=== PATIENT | female | born 1970 | race Caucasian/White ===

== ENCOUNTER 2018-04-03 23:40 | Emergency (ER) | payer BC ==
[2018-04-04] MEDS ORDERED: Acetaminophen 325 MG TAB ONE (00:35)
[2018-04-04] MEDS ORDERED: predniSONE 20 MG TAB ONE (00:35)
== END 2018-04-04 00:55 | disposition home or self-care (01) ==
LOC: ERS 23:40
DX: J06.9 Acute upper respiratory infection, unspecified (principal); R06.2 Wheezing; M06.9 Rheumatoid arthritis, unspecified; Z79.899 Other long term (current) drug therapy
CPT/HCPCS: J7506; J7620

== ENCOUNTER 2019-08-25 20:49 | Observation (INO) | payer BC ==
[2019-08-25 21:30] LABS: #Basophils 0.1 thou/uL (0.0-0.2); #Eosinphils 0.1 thou/uL (0.0-0.7); #Lymphocytes 3.5 thou/uL (1.20-3.40); #Monocytes 0.8 thou/uL (0.11-0.59); #Neutrophils 6.5 thou/uL (1.40-6.50); %Basophils 0.5 % (0.0-1.0); %Eosinophils 1.3 % (0.0-10.0); %Lymphocytes 31.7 % (21.0-51.0); %Monocytes 7.2 % (0.0-10.0); %Neutrophils 59.3 % (42.0-75.0); Hemoglobin 14.1 g/dL (12.0-16.0); Mean Corpuscular HGB CONC 34.4 g/dL (32.0-36.0); Mean Corpuscular Hemoglobin 31.6 pg (27.0-31.0); Mean Corpuscular Volume 91.7 fL (78.0-98.0); Mean Platelet Volume 7.8 fL (7.4-10.4); Platelet Count 285 thou/uL (130-400); RBC Distribution Width 12.2 % (11.5-14.5); Red Blood Cell (RBC) Count 4.45 mill/uL (4.20-5.40); White Blood Cell (WBC) Count 10.9 thou/uL (4.8-10.8)
--- NOTE | 2019-08-25 21:41 | RAD ---
Exam: Chest one view HISTORY:Pain Comparison: January 08, 2011 FINDINGS: Lungs: No masses or consolidation. Cardiac silhouette:Accentuated by portable technique Pulmonary vessels: Normal Pleural Spaces: Clear Pneumothorax: None Osseous abnormalities: None of acuity. IMPRESSION: No focal consolidation.
[2019-08-25 21:43] LABS: ALT (SGPT) 17 U/L (8-55); AST (SGOT) 18 U/L (5-34); Albumin 4.2 g/dL (3.5-5.0); Alkaline Phosphatase 77 U/L (40-110); Anion Gap 12 mmol/L (10-20); BUN (Urea Nitrogen) 14 mg/dL (7.0-18.7); Bilirubin, Total 0.9 mg/dL (0.2-1.2); Calc. Creatinine Clearance 0 mL/min (70-130); Calcium 9.3 mg/dL (7.8-10.44); Carbon Dioxide 22 mmol/L (22-29); Chloride 106 mmol/L (98-107); Estimated GFR-MDRD 83; Globulin 3.1 g/dL (2.4-3.5); Glucose 95 mg/dL (70-105); Potassium 3.6 mmol/L (3.5-5.1); Protein, Total 7.3 g/dL (6.0-8.3); Sodium 136 mmol/L (136-145)
[2019-08-25] MEDS ORDERED: Nitroglycerin 0.4 MG TAB 1 EACH ONE (21:44)
[2019-08-25] MEDS ORDERED: Aspirin 325 MG TAB ONE (21:44)
[2019-08-25] MEDS ORDERED: Nitroglycerin 2% Ointment 1 INCH/1 GM Packet ONE (22:31)
[2019-08-26 00:59] LABS: Troponin I Less than 0.010 ng/mL (< 0.028)
[2019-08-26] MEDS ORDERED: Ondansetron ODT 4 MG TAB SL PRN (01:45)
[2019-08-26] MEDS ORDERED: Sodium Chloride 0.9% 1,000 ML IV SCH (01:45)
[2019-08-26] MEDS ORDERED: Ondansetron PF 4 MG/2 ML Vial IVP PRN ×2 (01:45→11:40)
[2019-08-26] MEDS ORDERED: Acetaminophen 325 MG TAB PO PRN (01:45)
[2019-08-26 02:10] VITALS: BMI 42.0
[2019-08-26 03:41] LABS: Troponin I Less than 0.010 ng/mL (< 0.028)
[2019-08-26] MEDS ORDERED: Ondansetron ODT 4 MG TAB PO PRN (11:40)
[2019-08-26] MEDS ORDERED: Acetaminophen 500 MG TAB PO PRN (11:40)
[2019-08-26] MEDS ORDERED: hydrALAZINE 20 MG/ML VIAL SLOW IVP PRN (11:40)
[2019-08-26] MEDS ORDERED: PROVENTIL INHALER 6.7 G (200 INHALATIONS) INH PRN (15:31)
[2019-08-26] MEDS ORDERED: Hydroxychloroquine Sulfate 200 MG TAB PO SCH ×2 (15:45→19:30)
--- NOTE | 2019-08-26 17:15 | HP ---
PRIMARY CARE PROVIDER: Dr. Salvador Holland. COMPLAINT: Chest pain. HISTORY OF PRESENT ILLNESS: This is a 49-year-old female who presents to [facility] Emergency Department, complaining of substernal chest pressure beginning approximately 7:30 p.m. on 08/25/2019. The patient states she was driving her vehicle when she began to feel substernal chest pressure and tightness, rating at 4/10 in severity. The pain did not increase with exertion, and the patient did not have any relief with rest. The patient admits to some right jawline and neck discomfort, resolving prior to evaluation in the emergency room. The patient denied associated nausea, vomiting, diaphoresis, or left arm discomfort. The patient states she had similar episode approximately 5 days previous to the evaluation in the emergency room with associated fatigue. The patient admits to some shortness of breath and wheezing over the past few days, but does admit to history of allergies and asthma. The patient denied any travel history exposure, recent trauma, or injury. The patient apparently underwent cardiac catheterization in the last 10 to 15 years without intervention. In the emergency room, the patient underwent general evaluation including cardiac biomarker evaluation showing negative findings. Screening metabolic survey was unremarkable. Chest imaging was performed showing no acute process. The patient did receive transdermal nitroglycerin in addition to intravenous normal saline x1 L and aspirin 324 mg. PAST MEDICAL HISTORY: 1. Ulcerative colitis. 2. Rheumatoid arthritis after apparent exposure to ciprofloxacin. 3. Environmental allergies. 4. Urge incontinence. 5. Asthma. PAST SURGICAL HISTORY: 1. Status post cholecystectomy. 2. Status post hysterectomy. 3. Status post bilateral tubal ligation. CURRENT MEDICATIONS: 1. Humira 40 mg subcutaneously q.14 days, last dose 08/23/2019. 2. ProAir HFA 2 puffs inhaled q.4 hours p.r.n. 3. Folic acid 1 mg p.o. daily. 4. Plaquenil 200 mg two tablets on day #1 followed by one tablet on alternating days. 5. Mesalamine 1.2 g p.o. t.i.d. 6. Methotrexate 25 mg every weekly, last dose 08/22/2019. 7. Myrbetriq 25 mg p.o. daily. 8. Prednisone 5 mg p.o. q.a.m. ALLERGIES: TO CIPROFLOXACIN AND WATERMELON. FAMILY HISTORY: No inheritable disease per patient report. SOCIAL HISTORY: No current tobacco or illicit drug use. Occasional social alcohol use. REVIEW OF SYSTEMS: CONSTITUTIONAL: Negative for weight loss or gain, ability to conduct usual activities. SKIN: Negative for rash, itching. EYES: Negative for double vision, pain. ENT/MOUTH: Negative for nose bleeding, neck stiffness, pain, tenderness. CARDIOVASCULAR: Negative for palpitations, dyspnea on exertion, orthopnea. RESPIRATORY: Negative for shortness of breath, wheezing, cough, hemoptysis, fever or night sweats. GASTROINTESTINAL: Negative for poor appetite, abdominal pain, heartburn, nausea, vomiting, constipation, or diarrhea. GENITOURINARY: Negative for urgency, frequency, dysuria, nocturia. MUSCULOSKELETAL: Negative for pain, swelling. NEUROLOGIC/PSYCHIATRIC: Negative for anxiety, depression. ALLERGY/IMMUNOLOGIC: Negative for skin rash, bleeding tendency. Otherwise negative except as stated per HPI. PHYSICAL EXAMINATION: VITAL SIGNS: On admission, blood pressure 109/64, pulse 73, respiratory rate 16, temperature 97.7 degrees Fahrenheit, O2 saturation 96% on room air. GENERAL APPEARANCE: This is a 49-year-old female, alert and oriented x3, pleasant, conversant, in no acute distress. HEENT: Pupils are equal, round, reactive to light and accommodation. Extraocular muscles are intact. No scleral icterus. No conjunctival injection. Nares are patent. OP is clear. Teeth in good repair. NECK: Supple. No cervical adenopathy. No thyromegaly. No carotid bruits. No JVD appreciated. Cervical spine with full active and passive range of motion. No meningeal signs noted. CHEST: Occasional expiratory wheeze noted. Normal excursion bilaterally. CARDIOVASCULAR: S1 and S2 without noted murmur, rub, or gallop. ABDOMEN: Rounded, soft, nontender, and nondistended. Bowel sounds are positive in all 4 quadrants. No hepatosplenomegaly. No abdominal bruits. No rebound or guarding appreciated. EXTREMITIES: Warm and dry with fair turgor. No clubbing, cyanosis, or asymmetric edema appreciated. Pulses are palpable distally at the dorsalis pedis, posterior tibial, and popliteal arteries bilaterally. Capillary refill less than 2 seconds. NEUROLOGIC: Cranial nerves 2 through 12 are grossly intact. No focal or lateralizing signs appreciated. PERTINENT LABORATORY AND X-RAY FINDINGS: Complete metabolic profile within normal limits. Troponin I negative x3. CBC showed a white blood cell count of 10.9, hemoglobin 14, hematocrit 41, platelet count 285 with normal differential. Portable chest x-ray dated 08/25/2019, showed no acute cardiopulmonary process. EKG dated 08/25/2019, by my interpretation shows sinus mechanism without acute ST-T wave changes. ASSESSMENT AND PLAN: 1. Chest pain. The patient will be observed on the telemetry unit. We will proceed with exercise Cardiolite stress testing to rule out underlying ischemia. Initial metabolic and radiographic workup unrevealing. Check fasting lipid profile in the a.m. 2. Rheumatoid arthritis. Resume home immunosuppressant regimen and monitor clinically. 3. Asthma. No current evidence of an acute exacerbation. Resume albuterol sulfate 2 puffs inhaled q.4 hours p.r.n. 4. Chronic immunosuppression. No current evidence to suggest occult infectious process. Continue supportive management and resume immunosuppression therapy as stated previously. 5. Prophylaxis. Sequential compression devices while in bed. Pepcid 20 mg p.o. b.i.d. 6. Code status, full. 7. Surrogate medical decision maker not identified. Job ID: [id number]
[2019-08-26] MEDS: Famotidine 20 MG TAB PO SCH (20:12)
[2019-08-26] MEDS: Mesalamine DR 400 mg Capsule PO SCH (20:12)
[2019-08-27 05:27] LABS: Cardiac Risk 3.3 (Less than 4.5)
[2019-08-27] MEDS ORDERED: predniSONE 5 MG TAB PO SCH (08:00)
[2019-08-27] MEDS ORDERED: Hydroxychloroquine Sulfate 200 MG TAB PO SCH (09:00)
[2019-08-27] MEDS ORDERED: Folic Acid 1 MG TAB PO SCH (09:00)
[2019-08-27] MEDS: Famotidine 20 MG TAB PO SCH (12:17)
[2019-08-27] MEDS: Mesalamine DR 400 mg Capsule PO SCH (12:18)
[2019-08-27 12:21] VITALS: BP 107/67; TEMP 97.6
--- NOTE | 2019-08-27 12:32 | NM ---
EXAM: CARDIAC SPECT HISTORY: Chest pain TECHNIQUE: A myocardial perfusion scan was performed using the single isotope 2 day protocol with shivani hnetium 99m sestamibi. [31 mCi] was injected intravenously for the rest exam followed by 30 mCi for the stress study. Exercise stress was monitored and interpreted by Dr. Martinez FINDINGS: No reversible defects are seen. There are small fixed defects in the distal and paraseptal and inferolateral newman. These areas demonstrate normal wall thickening and contractility. Gated SPECT LVEF: 73% Wall motion exam: Normal IMPRESSION: No evidence of reversible ischemia.
[2019-08-28] MEDS ORDERED: Hydroxychloroquine Sulfate 200 MG TAB PO SCH (09:00)
--- NOTE | 2019-08-28 09:33 | DIS ---
DATE OF ADMISSION: 08/25/2019 DATE OF DISCHARGE: 08/27/2019 DISCHARGE DIAGNOSES: 1. Chest pain, likely musculoskeletal, noncardiac. 2. Rheumatoid arthritis on chronic immunosuppression. 3. Asthma without exacerbation. 4. Chronic immunosuppression. CONSULTATIONS: None. PERTINENT LABORATORY AND X-RAY FINDINGS: Complete metabolic profile within normal limits. Troponin I negative x3. Total cholesterol 147, triglycerides 102, HDL 45, LDL 82. CBC showed a white blood cell count of 10.9, hemoglobin 14, hematocrit 41, platelet count 285. Portable chest x-ray dated, 08/25/2019, showed no acute cardiopulmonary process. Cardiolite stress test dated, 08/26/2019, showed no evidence for reversible or fixed ischemia with calculated ejection fraction of 73%. HOSPITAL COURSE: The patient was observed on the telemetry unit after initially presenting with chest pain and concern for cardiac etiology. Serial cardiac biomarkers were negative x3, at which point the patient proceeded with exercise Cardiolite stress testing showing no evidence of reversible or fixed ischemia with calculated ejection fraction of 73%. Telemetry monitoring showed sinus mechanism without evidence of acute arrhythmia or dysrhythmia. The patient's vital signs remained stable throughout the hospital course and metabolic workup was essentially unrevealing. The patient's symptomatology likely due to musculoskeletal chest pain and noncardiac. I have examined the patient at the time of discharge and discussed followup instructions. The patient overall clinically stable and ready for discharge on 08/27/2019. DISCHARGE MEDICATIONS: 1. Humira 40 mg q.14 days. 2. ProAir HFA 2 puffs inhaled q.4 hours p.r.n. 3. Folic acid 1 mg p.o. daily. 4. Plaquenil 400 mg, followed by 200 mg alternating every other day. 5. Mesalamine 1.2 g p.o. t.i.d. 6. Methotrexate 25 mg weekly. 7. Myrbetriq 25 mg p.o. daily. 8. Prednisone 5 mg p.o. daily. FOLLOWUP: The patient may follow up with her primary care provider, Dr. Salvador Holland within 7 days of discharge. CONDITION ON DISCHARGE: Stable. ACTIVITY: Ad-hemant. DIET: Heart healthy. CODE STATUS: Full. DISPOSITION: Home, 08/27/2019. Job ID: [id number]
--- NOTE | 2019-08-28 23:45 | STRESS ---
Acquisition Time: 2019-08-27 10:20:38 Total Exercise Time: 00:10:15 Test Indications: CHEST PAIN Medications: Protocol: NICOLE Max HR: 155 BPM 91% of Pred: 170 BPM Max BP: 150/050 mmHG Max Work Load: 13.4 METS RESTING ECG: NORMAL SINUS RHYTHM AT 61 BPM WITH INTRAVENTRICULAR CONDUCTION DELAY SYMPTOMS: DYSPNEA ON EXERTION NORMAL BP RESPONSE ECTOPY: RARE PAC ECG STRESS: NO SIGNIFICANT CHANGES INTERPRETATION: NEGATIVE GXT/AWAIT NUCLEAR IMAGES FOR DEFINITIVE DIAGNOSIS Confirmed by HUSSEIN ROJAS M.D. ([id number] on 08/28/2019 11:44:22 PM Referred By: MD Blanquita ECHEVERRIA Confirmed By:HUSSEIN ROJAS M.D.
== END 2019-08-27 15:15 | disposition home or self-care (01) ==
LOC: ERS 20:49 → ERHOLD 23:23 → 2SW 08-26 01:36
PROVIDERS: ADMIT Internal Medicine; ATTEND Internal Medicine
DX: R07.2 Precordial pain (principal); M06.9 Rheumatoid arthritis, unspecified; J45.909 Unspecified asthma, uncomplicated; K51.90 Ulcerative colitis, unspecified, without complications; N39.41 Urge incontinence; Z79.899 Other long term (current) drug therapy; Z88.1 Allergy status to other antibiotic agents; Z91.018 Allergy to other foods
CPT/HCPCS: 36415; 71045; 78452; 80053; 80061; 83690; 84484; 85025; 93005; 93017; 94760; 96360; 96361; A9500; G0378; J7512

== ENCOUNTER 2021-03-06 21:40 | Observation (INO) | payer BC ==
[2021-03-06 22:23] LABS: #Eosinphils 0.2 thou/uL (0.0-0.7); #Lymphocytes 3.6 thou/uL (1.20-3.40); #Monocytes 0.7 thou/uL (0.11-0.59); #Neutrophils 3.9 thou/uL (1.40-6.50); %Basophils 0.6 % (0.0-1.0); %Eosinophils 2.4 % (0.0-10.0); %Monocytes 7.8 % (0.0-10.0); %Neutrophils 46.2 % (42.0-75.0); Hemoglobin 12.9 g/dL (12.0-16.0); Mean Corpuscular HGB CONC 34.2 g/dL (32.0-36.0); Mean Corpuscular Hemoglobin 30.9 pg (27.0-31.0); Mean Corpuscular Volume 90.6 fL (78.0-98.0); Mean Platelet Volume 7.2 fL (7.4-10.4); Platelet Count 267 thou/uL (130-400); RBC Distribution Width 11.7 % (11.5-14.5); Red Blood Cell (RBC) Count 4.16 mill/uL (4.20-5.40); White Blood Cell (WBC) Count 8.3 thou/uL (4.8-10.8)
[2021-03-06] MEDS ORDERED: Aspirin Chewable 81 MG TAB ONE (22:28)
[2021-03-06] MEDS ORDERED: Nitroglycerin 0.4 MG TAB 1 EACH ONE (22:44)
[2021-03-06 22:51] LABS: ALT (SGPT) 15 U/L (8-55); AST (SGOT) 19 U/L (5-34); Acetaminophen Less than 6.0 mcg/mL (10.0-30.0); Albumin 3.5 g/dL (3.5-5.0); Alcohol Less than 10 mg/dL (Less than 10); Alkaline Phosphatase 72 U/L (40-110); Anion Gap 12 mmol/L (10-20); BUN (Urea Nitrogen) 14 mg/dL (9.8-20.1); Bilirubin, Total 0.6 mg/dL (0.2-1.2); Calc. Creatinine Clearance 0 mL/min (70-130); Calcium 8.6 mg/dL (7.8-10.44); Carbon Dioxide 23 mmol/L (22-29); Chloride 106 mmol/L (98-107); Globulin 3.4 g/dL (2.4-3.5); Glucose 146 mg/dL (70-105); Potassium 3.6 mmol/L (3.5-5.1); Protein, Total 6.9 g/dL (6.0-8.3); Salicylate Less than 8.0 mg/dL (15.0-30.0); Sodium 137 mmol/L (136-145)
[2021-03-07] MEDS ORDERED: Ondansetron ODT 4 MG TAB SL PRN (02:00)
[2021-03-07] MEDS ORDERED: Ondansetron PF 4 MG/2 ML Vial IVP PRN (02:00)
[2021-03-07] MEDS ORDERED: Acetaminophen 325 MG TAB PO PRN (02:00)
[2021-03-07 03:16] VITALS: BMI 42.6
[2021-03-07] MEDS: Sodium Chloride 0.9% 1,000 ML IV SCH ×2 (04:11→08:39)
[2021-03-07 05:15] LABS: Troponin I 0.024 ng/mL (< 0.028)
[2021-03-07] MEDS: Enoxaparin Sodium 40 MG/0.4 ML SYRINGE SC SCH (08:38)
[2021-03-07] MEDS ORDERED: Heparin 10,000 UNITS/ 10 ML VIAL ONE (10:08)
[2021-03-07 10:54] LABS: Troponin I 0.013 ng/mL (< 0.028)
[2021-03-08 05:35] LABS: #Basophils 0.1 thou/uL (0.0-0.2); #Eosinphils 0.3 thou/uL (0.0-0.7); #Lymphocytes 3.2 thou/uL (1.20-3.40); #Monocytes 0.7 thou/uL (0.11-0.59); #Neutrophils 4.2 thou/uL (1.40-6.50); %Basophils 0.8 % (0.0-1.0); %Eosinophils 3.3 % (0.0-10.0); %Lymphocytes 37.4 % (21.0-51.0); %Monocytes 8.7 % (0.0-10.0); %Neutrophils 49.8 % (42.0-75.0); Hemoglobin 13.5 g/dL (12.0-16.0); Mean Corpuscular HGB CONC 32.6 g/dL (32.0-36.0); Mean Corpuscular Hemoglobin 29.5 pg (27.0-31.0); Mean Corpuscular Volume 90.5 fL (78.0-98.0); Mean Platelet Volume 7.2 fL (7.4-10.4); Platelet Count 287 thou/uL (130-400); RBC Distribution Width 11.8 % (11.5-14.5); Red Blood Cell (RBC) Count 4.59 mill/uL (4.20-5.40); White Blood Cell (WBC) Count 8.5 thou/uL (4.8-10.8)
[2021-03-08 05:53] LABS: Anion Gap 13 mmol/L (10-20); BUN (Urea Nitrogen) 12 mg/dL (9.8-20.1); Calc. Creatinine Clearance 186 mL/min (70-130); Calcium 9.3 mg/dL (7.8-10.44); Carbon Dioxide 21 mmol/L (22-29); Chloride 108 mmol/L (98-107); Glucose 88 mg/dL (70-105); Potassium 3.8 mmol/L (3.5-5.1); Sodium 138 mmol/L (136-145)
[2021-03-08 08:43] VITALS: BP 123/77; TEMP 97.4
[2021-03-08] MEDS: Enoxaparin Sodium 40 MG/0.4 ML SYRINGE SC SCH (08:52)
== END 2021-03-08 10:18 | disposition home or self-care (01) ==
LOC: ERS 21:40 → 2SE 03-07 01:10
PROVIDERS: ADMIT Student in an Organized Health Care Education/Training Program; ATTEND Family Medicine
DX: R00.2 Palpitations (principal); R07.89 Other chest pain; M06.9 Rheumatoid arthritis, unspecified; I08.8 Other rheumatic multiple valve diseases; J45.909 Unspecified asthma, uncomplicated; E66.9 Obesity, unspecified; Z68.41 Body mass index [BMI] 40.0-44.9, adult; Z79.52 Long term (current) use of systemic steroids; Z79.899 Other long term (current) drug therapy; Z88.1 Allergy status to other antibiotic agents; Z91.018 Allergy to other foods
CPT/HCPCS: 36415; 71045; 78452; 80048; 80053; 80307; 84443; 84484; 85025; 93005; 93017; 93306; 96372; A9500; G0378; J1644; J1650

== ENCOUNTER 2022-05-19 10:57 | Outpatient (CLI) | payer BC | END 2022-05-19 10:58 | disposition home or self-care (01) | LOC: BICMAMMO 10:57 | PROVIDERS: ATTEND Internal Medicine Rheumatology | DX: Z13.820 Encounter for screening for osteoporosis (principal) | CPT/HCPCS: 77080 ==

== ENCOUNTER 2023-10-02 14:19 | Outpatient (CLI) | payer BC | END 2023-10-02 14:20 | disposition home or self-care (01) | LOC: ULT 14:19 | PROVIDERS: ATTEND Family Medicine | DX: R39.9 Unspecified symptoms and signs involving the genitourinary system (principal) | CPT/HCPCS: 76770 ==

== ENCOUNTER 2024-06-05 09:59 | Outpatient (CLI) | payer BC ==
[2024-06-05 10:45] LABS: Hematocrit 38.5 % (34.9-44.5); Hemoglobin 13.4 g/dL (12.0-15.5); Mean Corpuscular HGB CONC 34.8 g/dL (32.0-36.0); Mean Corpuscular Hemoglobin 30.9 pg (27.0-33.0); Mean Corpuscular Volume 88.9 fL (81.6-98.3); Mean Platelet Volume 9.8 fL (7.4-10.4); Platelet Count 238 10x3/uL (150-450); RBC Distribution Width 13.3 % (11.5-14.5); Red Blood Cell (RBC) Count 4.33 10x6/uL (3.90-5.03); White Blood Cell (WBC) Count 5.3 10x3/uL (3.5-10.5)
[2024-06-05 11:17] LABS: PTT 25.4 sec (22.0-33.0); Prothrombin Time 10.4 sec (9.5-12.1)
[2024-06-05 11:22] LABS: Anion Gap 13 mmol/L (10-20); BUN (Urea Nitrogen) 22 mg/dL (9.8-20.1); Calc. Creatinine Clearance 0 mL/min (70-130); Carbon Dioxide 19 mmol/L (22-29); Chloride 110 mmol/L (98-107); Estimated GFR 94; Glucose 78 mg/dL (70-105); Sodium 138 mmol/L (136-145)
[2024-06-05 11:52] LABS: Bilirubin Neg (Negative); Blood, Urine 50 (Negative); Clarity Cloudy (Clear); Glucose, Urine (Dipstick) Normal (Negative); Ketone, Urine Negative (Negative); Leukocyte 500 (Negative); Nitrite Negative (Negative); Protein, Urine (Dipstick) 30 mg/dl (Neg-Trace); Specific Gravity, Urine 1.015 (1.005-1.030); Urobilinogen Normal mg/dL (Less than 2)
[2024-06-05 12:24] LABS: Bacteria/HPF 2+ HPF (None Seen); WBC/HPF Greater than 50 HPF (0-3)
== END 2024-06-05 10:00 | disposition home or self-care (01) ==
LOC: LABBT 09:59
PROVIDERS: ATTEND Urology
DX: Z01.818 Encounter for other preprocedural examination (principal); N32.81 Overactive bladder; N32.0 Bladder-neck obstruction
CPT/HCPCS: 80048; 81001; 85027; 85610; 85730; 87086; 93005; 93010

== ENCOUNTER 2025-07-15 11:20 | Outpatient (CLI) | payer BC | END 2025-07-15 11:21 | disposition home or self-care (01) | LOC: BICMAMMO 11:20 | PROVIDERS: ATTEND Internal Medicine Rheumatology | DX: Z78.0 Asymptomatic menopausal state (principal) | CPT/HCPCS: 77080 ==